=== PATIENT | female | born 1985 ===

== ENCOUNTER 2020-11-16 10:28 | Inpatient (IN) ==
[2020-11-16] MEDS ORDERED: Buffered Lidocaine 1% SYRIN 1 ml INTRADERM ONE (11:38)
[2020-11-16] MEDS ORDERED: Lactated Ringers 1000 ml BAG 1,000 ML IV ONE (11:38)
[2020-11-16] MEDS ORDERED: Lactated Ringers 1000 ml BAG 1,000 ML IV SCH (12:00)
[2020-11-16 12:55] LABS: Urine Benzodiazepine Screen None Detected (None Detect); Urine Cannabinoids Screen None Detected (None Detect); Urine Opiates Screen None Detected (None Detect)
[2020-11-16] MEDS ORDERED: Dinoprostone 10 MG VAG.SUPP VAGINAL ONE (20:30)
[2020-11-17] MEDS: Escitalopram SOLN ORALSYR 5 MG/5 ML PO SCH (09:20)
[2020-11-17] MEDS ORDERED: Lidocaine 2% JELLY 6 ML TOPICAL ONE ×2 (18:02→18:09)
[2020-11-17] MEDS ORDERED: Oxytocin in LR 20 UNITS/1,000 ML BAG IVPB SCH (20:00)
[2020-11-17 20:28] LABS: ABS Basophils 0.1 10^3/ul (0-0.2); ABS Eosinophils 0.1 10^3/ul (0-0.6); ABS Lymphocytes 2.3 10^3/ul (1.0-4.8); ABS Neutrophils 9.9 10^3/ul (1.5-7.7); Eosinophil % 0.4 %; Hematocrit 39 % (35-47); Hemoglobin 13.1 g/dL (12.0-16.0); Lymphocyte % 17.3 %; Mean Corpuscular HGB Conc 34 g/dL (31-36); Mean Corpuscular Hemoglobin 29 pg (27-31); Mean Corpuscular Volume 87 fL (80-97); Mean Platelet Volume 8.4 fL (7.4-10.4); Platelet Count 245 10^3/uL (150-450); Red Blood Count 4.47 10^6 /uL (3.70-4.87); Red Cell Distribution Width 15 % (10-15); White Blood Count 13.2 10^3/uL (3.5-10.8)
[2020-11-17 20:41] LABS: Albumin 3.5 g/dL (3.2-5.2); Albumin/Globulin Ratio 1.1 (1-3); Calcium 8.7 mg/dL (8.6-10.3); EGFR African American 108.5 (>60); EGFR Non-African American 89.7 (>60); Globulin 3.1 g/dL (2-4); Potassium 3.8 mmol/L (3.5-5.0); Total Bilirubin 0.4 mg/dL (0.2-1.0); Total Protein 6.6 g/dL (6.4-8.9); Uric Acid 5.4 mg/dL (2.3-6.6)
[2020-11-18] MEDS ORDERED: Promethazine INJ(RESTRICTED) 25 MG/ML 1 ml VIAL IV PRN (01:49)
[2020-11-18] MEDS ORDERED: Nalbuphine 10 MG/ML 1 ML VIAL IV PRN ×2 (01:49→19:44)
[2020-11-18] MEDS ORDERED: fentaNYL 100 mcg/2 ml 50 MCG/ML VIAL IV SLOW PU ONE (13:37)
[2020-11-18] MEDS ORDERED: OBEPIDURAL 250 ML EPIDURAL ONE (14:09)
[2020-11-18] MEDS ORDERED: fentaNYL 100 mcg/2 ml 50 MCG/ML VIAL ONE ×2 (15:48→22:26)
[2020-11-18 17:12] LABS: Urine Appearance Clear; Urine Bilirubin Negative (Negative); Urine Blood Negative (Negative); Urine Color Straw; Urine Glucose Negative (Negative); Urine Ketones Negative (Negative); Urine Nitrite Negative (Negative); Urine Protein Negative (Negative); Urine Specific Gravity 1.008 (1.002-1.030); Urine Urobilinogen Negative (Negative)
[2020-11-18] MEDS ORDERED: Lactated Ringers 1000 ml BAG 1,000 ML IV ONE (18:07)
[2020-11-18] MEDS ORDERED: Sodium Citrate/Citric Acid LIQ 15 ML UDC PO PRN (18:07)
[2020-11-18] MEDS ORDERED: Phenylephrine 40 mcg/mL 10mL (400mcg) SYRINGE IV PUSH PRN ×2 (18:07)
[2020-11-18] MEDS ORDERED: Lactated Ringers 1000 ml BAG 500 ML IV PRN (18:07)
[2020-11-18] MEDS ORDERED: OBEPIDURAL 250 ML EPIDURAL SCH (19:00)
[2020-11-18] MEDS ORDERED: Lactated Ringers 1000 ml BAG 1,000 ML IV SCH (19:00)
[2020-11-18] MEDS ORDERED: diPHENhydraMINE IV 50 MG/ML 1 ml VIAL (BENADRYL) IV PRN (19:46)
[2020-11-18] MEDS: Escitalopram SOLN ORALSYR 5 MG/5 ML PO SCH (20:54)
[2020-11-18] MEDS ORDERED: Bupivacaine 0.25% SDV PF 10 ML VIAL INJ ONE (22:26)
[2020-11-19] MEDS ORDERED: Glycerin ADULT 2.4 gm SUPP PR PRN (05:43)
[2020-11-19] MEDS ORDERED: Dibucaine 1% OINT 28.35 GM TUBE PR PRN (05:43)
[2020-11-19] MEDS ORDERED: Lactated Ringers 1000 ml BAG 1,000 ML IV SCH (06:00)
[2020-11-19] MEDS ORDERED: Carboprost Tromethamine 250 mcg 1 ml VIAL ONE (06:12)
[2020-11-19] MEDS ORDERED: ceFAZolin 2 GM PREMIX 2 GM/50 ML BAG ONE (06:26)
[2020-11-19] MEDS ORDERED: ceFAZolin 2 GM in NS PREMIX 2 GM/100 ML BAG IVPB ONE (06:43)
[2020-11-19] MEDS ORDERED: Carboprost Tromethamine 250 mcg 1 ml VIAL IM ONE (06:45)
[2020-11-19] MEDS: Oxytocin in LR 20 UNITS/1,000 ML BAG IVPB SCH ×2 (06:52→11:20)
[2020-11-19 07:46] LABS: ABS Basophils 0.1 10^3/ul (0-0.2); ABS Lymphocytes 1.3 10^3/ul (1.0-4.8); ABS Monocytes 0.5 10^3/ul (0-0.8); ABS Neutrophils 16.8 10^3/ul (1.5-7.7); Eosinophil % 0.1 %; Hematocrit 33 % (35-47); Hemoglobin 10.9 g/dL (12.0-16.0); Lymphocyte % 7.1 %; Mean Corpuscular HGB Conc 33 g/dL (31-36); Mean Corpuscular Hemoglobin 30 pg (27-31); Mean Corpuscular Volume 90 fL (80-97); Red Cell Distribution Width 15 % (10-15); White Blood Count 18.7 10^3/uL (3.5-10.8)
[2020-11-19 08:40] LABS: Activated Partial Thrombo Time 22.7 seconds (26.0-38.0); Fibrinogen 352.7 mg/dL (110.8-404.3)
[2020-11-19 08:48] LABS: Mean Platelet Volume 8.8 fL (7.4-10.4); Platelet Count 204 10^3/uL (150-450)
[2020-11-19 08:49] LABS: Large Platelets Present
[2020-11-19 08:50] LABS: Platelet Count 204 10^3/ul (150-450); Schistocytes ABSENT
[2020-11-19] MEDS: Witch Hazel PAD JAR TOPICAL PRN (09:31)
[2020-11-19 15:15] LABS: Hematocrit 31 % (35-47); Hemoglobin 10.6 g/dL (12.0-16.0); Mean Corpuscular HGB Conc 34 g/dL (31-36); Mean Corpuscular Hemoglobin 29 pg (27-31); Mean Corpuscular Volume 87 fL (80-97); Mean Platelet Volume 8.1 fL (7.4-10.4); Platelet Count 150 10^3/uL (150-450); Red Blood Count 3.61 10^6 /uL (3.70-4.87); Red Cell Distribution Width 15 % (10-15); White Blood Count 27.3 10^3/uL (3.5-10.8)
[2020-11-19 16:27] LABS: ABS Eosinophils 0.1 10^3/ul (0-0.6); ABS Lymphocytes 1.4 10^3/ul (1.0-4.8); ABS Monocytes 2.1 10^3/ul (0-0.8); ABS Neutrophils 23.7 10^3/ul (1.5-7.7); Eosinophil % 0.2 %; Lymphocyte % 5.2 %; RBC Morphology Normal (Normal)
[2020-11-19] MEDS: Escitalopram SOLN ORALSYR 5 MG/5 ML PO SCH (20:29)
[2020-11-20] MEDS: Escitalopram SOLN ORALSYR 5 MG/5 ML PO SCH ×2 (07:20→20:12)
[2020-11-20 09:15] LABS: ABS Eosinophils 0.1 10^3/ul (0-0.6); ABS Lymphocytes 2.1 10^3/ul (1.0-4.8); ABS Monocytes 0.9 10^3/ul (0-0.8); ABS Neutrophils 15.2 10^3/ul (1.5-7.7); Eosinophil % 0.4 %; Hematocrit 30 % (35-47); Hemoglobin 10.2 g/dL (12.0-16.0); Lymphocyte % 11.5 %; Mean Corpuscular HGB Conc 34 g/dL (31-36); Mean Corpuscular Hemoglobin 30 pg (27-31); Mean Corpuscular Volume 87 fL (80-97); Mean Platelet Volume 8.3 fL (7.4-10.4); Platelet Count 163 10^3/uL (150-450); Red Blood Count 3.42 10^6 /uL (3.70-4.87); Red Cell Distribution Width 15 % (10-15); White Blood Count 18.4 10^3/uL (3.5-10.8)
[2020-11-20 09:29] LABS: Albumin 2.7 g/dL (3.2-5.2); Albumin/Globulin Ratio 1.1 (1-3); EGFR African American 133.5 (>60); EGFR Non-African American 110.4 (>60); Globulin 2.4 g/dL (2-4); Potassium 3.8 mmol/L (3.5-5.0); Total Bilirubin 0.5 mg/dL (0.2-1.0); Total Protein 5.1 g/dL (6.4-8.9)
[2020-11-20] MEDS: Witch Hazel PAD JAR TOPICAL PRN (16:03)
[2020-11-21 08:54] VITALS: BP 126/79
== END 2020-11-21 12:27 | disposition home or self-care (01) | DRG 560 ==
LOC: MCHOBOUT 10:28 → MCHOB 11:35
PROVIDERS: ADMIT Midwife; ATTEND Midwife